=== PATIENT | male | born 1950 | race Caucasian/White ===

== ENCOUNTER 2017-02-04 11:45 | Emergency (ER) | payer MEDICARE, OTHER ==
[2017-02-04] MEDS ORDERED: GLUCAGON,HUMAN RECOMB 1 MG INJ IM ONE (12:03)
--- NOTE | 2017-02-04 12:07 | ER Document Report ---
ED Medical Screen (RME) - General Chief Complaint: Swallowed Foreign Body Stated Complaint: THROAT IRRITATION Time Seen by Provider: 02/04/17 12:02 Mode of Arrival: Ambulatory Information source: Patient TRAVEL OUTSIDE OF THE [place] IN LAST 30 DAYS: No - HPI Patient complains to provider of: food impaction Onset: Yesterday - pt. roseann eating dinner last night and feels he got some food ( eating hamburger and bun) stuck in his esophagus. This happened last year and "got better after he got a shot." Is able to handle his secretions - Related Data Allergies/Adverse Reactions: No Known Allergies Allergy (Verified 02/04/17 11:48) Past Medical History - Social History Chew tobacco use (# tins/day): No Frequency of alcohol use: None Drug Abuse: None - Past Medical History Cardiac Medical History: Reports: Hx Heart Attack, Hx Hypertension Renal/ Medical History: Denies: Hx Peritoneal Dialysis Past Surgical History: Reports: Hx Cardiac Catheterization, Hx Cardiac Surgery - pace maker, Hx Coronary Stent - x2, Hx Pacemaker - Immunizations Hx Diphtheria, Pertussis, Tetanus Vaccination: No Physical Exam - Vital signs Vitals: Temp Pulse Resp BP Pulse Ox 98.3 F 64 16 136/78 H 97 02/04/17 11:53 02/04/17 11:53 02/04/17 11:53 02/04/17 11:53 02/04/17 11:53 Course - Vital Signs Vital signs: Temp Pulse Resp BP Pulse Ox 98.3 F 64 16 136/78 H 97 02/04/17 11:53 02/04/17 11:53 02/04/17 11:53 02/04/17 11:53 02/04/17 11:53
--- NOTE | 2017-02-04 15:24 | RADIOLOGY REPORT (SQ) ---
EXAM DESCRIPTION: BARIUM SWALLOW ESOPHAGUS COMPLETED DATE/TIME: 02/04/2017 3:02 pm REASON FOR STUDY: gastrografin contrast study for dysphagia COMPARISON: None. TECHNIQUE: Under fluoroscopic guidance, patient ingested water soluble contrast. Fluoroscopic spot i mages and routine radiographic images acquired and stored on PACS. 12 MM BARIUM TABLET GIVEN: No. LIMITATIONS: None. FLUOROSCOPY TIME: 26 seconds 4 images saved to PACS. FINDINGS: NEUROMUSCULAR COORDINATION OF SWALLOW: Normal. No aspiration. ESOPHAGEAL MOTILITY: Tertiary contractions. ESOPHAGEAL MUCOSA: Normal mucosa without masses or ulceration. GASTRO-ESOPHAGEAL JUNCTION: Impacted food bolus. NON-GI TRACT STRUCTURES: Pacemaker leads in place. OTHER: No other significant finding. IMPRESSION: Impacted food bolus distal esophagus. Recommend direct visualization. COMMENT: Quality ID [id number]: Final reports for procedures using fluoroscopy that document radiation exp osure indices, or exposure time and number of fluorographic images (if radiation exposure indices are not available) TECHNICAL DOCUMENTATION: JOB ID: [id number] 2010 [employer]- All Rights Reserved
--- NOTE | 2017-02-04 16:27 | RADIOLOGY REPORT (SQ) ---
EXAM DESCRIPTION: ACUTE ABDOMEN SERIES COMPLETED DATE/TIME: 02/04/2017 4:05 pm REASON FOR STUDY: esopageal FB with obstruction, ?still present? COMPARISON: None. NUMBER OF VIEWS: Three views. TECHNIQUE: Frontal chest, supine abdomen and upright/decubitus abdomen radiographic images acquired. LIMITATIONS: None. FINDINGS: CHEST: Lungs clear of infiltrates. FREE AIR: None. No abnormal gas collections. BOWEL GAS PATTERN: Nonobstructive pattern. No dilated loops or air fluid levels. CALCIFICATIONS: No suspicious calcifications. HARDWARE: None in the abdomen. SOFT TISSUES: No gross mass or suggestion of organomegaly. BONES: No acute fracture. No worrisome bone lesions. OTHER: Enteric contrast is seen throughout the small bowel. IMPRESSION: Previously ingested enteric contrast has propagated to the level of the distal small bow el. Please note that the previously reported impacted esophageal fluid bolus may still be present to some degree. TECHNICAL DOCUMENTATION: JOB ID: [id number] [employer]- All Rights Reserved
[2017-02-04 16:58] VITALS: BP 126/71
--- NOTE | 2017-02-04 17:18 | ER Document Report ---
ED GI/ - General Chief Complaint: Swallowed Foreign Body Stated Complaint: THROAT IRRITATION Time Seen by Provider: 02/04/17 12:02 Mode of Arrival: Ambulatory Notes: Patient says that he was eating a hamburger bone with some peanut butter on it about 10 PM last night and it felt as if it caught in the anterior neck region. Patient thinks he swallowed too fast. He tries to drink liquids but was unable to do so. He tried hot coffee without success. Still feels as if something is caught in the back of his throat. He cannot drink anything because if he does catches and comes right back up. Patient denies any abdominal pains. Last bowel movement was yesterday. Patient had a similar episode in September 2015 and was seen here and given an injection of glucagon and his symptoms subsided and he was fine after that. He did not have any GI follow-up. Denies any shortness of breath or difficulty breathing. No fevers. Patient has a history of CHF with a pacemaker defibrillator. Cigarette smoker. TRAVEL OUTSIDE OF THE [place] IN LAST 30 DAYS: No - Related Data Allergies/Adverse Reactions: No Known Allergies Allergy (Verified 02/04/17 11:48) Past Medical History - General Information source: Patient - Social History Smoking Status: Current Every Day Smoker Chew tobacco use (# tins/day): No Frequency of alcohol use: None Drug Abuse: None Family History: Reviewed & Not Pertinent Patient has suicidal ideation: No Patient has homicidal ideation: No - Past Medical History Cardiac Medical History: Reports: Hx Congestive Heart Failure, Hx Heart Attack, Hx Hypertension Endocrine Medical History: Denies: Hx Diabetes Mellitus Type 1, Hx Diabetes Mellitus Type 2 Past Surgical History: Reports: Hx Cardiac Catheterization, Hx Cardiac Surgery - pace maker, Hx Coronary Stent - x2, Hx Pacemaker - Immunizations Hx Diphtheria, Pertussis, Tetanus Vaccination: No Review of Systems - Review of Systems Notes: REVIEW OF SYSTEMS: CONSTITUTIONAL : Denies fever. EENT: Denies eye, ear, nose or mouth or throat pain or other symptoms. CARDIOVASCULAR: Denies chest pain. RESPIRATORY: Denies cough, chest congestion, or shortness of breath. GASTROINTESTINAL: See HPI. GENITOURINARY: Denies difficulty or painful urinating, urinary frequency, blood in urine. MUSCULOSKELETAL: Denies back or neck pain. Denies joint pain or swelling. SKIN: Denies rash or skin lesions. NEUROLOGICAL: Denies LOC or altered mental status. Denies headache. Denies sensory loss or motor deficits. ALL OTHER SYSTEMS REVIEWED AND NEGATIVE. Physical Exam - Vital signs Vitals: Temp Pulse Resp BP Pulse Ox 98.3 F 64 16 136/78 H 97 02/04/17 11:53 02/04/17 11:53 02/04/17 11:53 02/04/17 11:53 02/04/17 11:53 Interpretation: Normal - Notes Notes: PHYSICAL EXAMINATION: GENERAL: Well-appearing, in no acute distress. Patient attempted to drink some water, at my request, and is unable to get it to stay down. He began regurgitating the water almost immediately after drinking it. Patient received 1 mg of glucagon IM just before I started examining him. HEAD: Atraumatic, normocephalic. EYES: Pupils equal round and reactive to light, extraocular movements intact. ENT: oropharynx clear without exudates. Moist mucous membranes. NECK: Normal range of motion, supple. LUNGS: Breath sounds clear and equal bilaterally. HEART: Regular rate and rhythm without murmurs. ABDOMEN: Soft, nontender. No guarding or rebound. BACK: No tenderness throughout entire back. EXTREMITIES: Normal range of motion without pain. NEUROLOGICAL: Normal speech, normal gait. Normal sensory, motor, and reflex exams. Awake, alert, and oriented x3. Cranial nerves normal. SKIN: Warm, dry, no rashes. Course - Re-evaluation Re-evalutation: 02/04/17 19:07 We waited until the patient had the glucagon on board for over an hour and had him drink some more carbonated beverage, with no success. He regurgitated some of that as well. Radiology was called and came to the department and gave the patient Gastrografin to swallow. This seizure revealed the patient to have a complete obstruction of the distal esophagus with the esophagus distended with contrast media and none seen in the abdomen. Sometime after that, went back to check on the patient he said he was feeling much better. He says he had spit up a lot of the contrast and also found some chicken and rice in the vomitus. Denies any abdominal pains. I re-x-rayed the patient and found that the column of contrast media in his esophagus was gone. Additionally, you could see contrast throughout his bowels on his abdominal film. He has no tenderness at all there. Up and ambulatory and walked outside to have a cigarette. I told the patient that I think he was safe to go home, but not eating anything but blended food for a few days and then small quantities of small food more frequently than usual but with less quantity. I explained to him that he could have something as benign as esophageal stricture that needs to be dilated periodically versus a tumor or even cancer of the esophagus and thus it is very important for him to have this further worked up and have an endoscopy done. He is going to contact Dr. Lao the first of the week to get set up for this follow-up. Patient was advised to return if he has recurrence of his symptoms, abdominal pain, fever, etc. - Vital Signs Vital signs: Temp Pulse Resp BP Pulse Ox 97.7 F 69 17 126/71 H 98 02/04/17 16:50 02/04/17 16:50 02/04/17 16:50 02/04/17 16:50 02/04/17 16:50 - Diagnostic Test Radiology results interpreted by me: 02/04/17 19:10 Patient's barium swallow with Gastrografin showed complete obstruction of the esophagus terminating in the lower esophagus at the diaphragm. Then, subsequent KUB film shows contrast media throughout the small bowel, and none in the esophagus. Discharge - Discharge Clinical Impression: Food impaction of esophagus Condition: Stable Disposition: HOME, SELF-CARE Additional Instructions: Esophageal Foreign Object Removal You have had a foreign object removed from the esophagus. For most patients , swallowing is normal after the procedure. But sometimes there's swelling, a scratch, or swollen muscle at the spot where the foreign object was lodged. Take only liquids at first. If you feel a "lump in the throat," a sense of "sticking," or other discomfort while swallowing, stay on liquids until the symptoms are gone. As you begin to eat solid food, start with soft items such as puddings or applesauce. Then move on to regular food, making sure you chew each bite very thoroughly before swallowing. Return at once if there is repeated vomiting, vomiting of blood, fever, chest pain, shortness of breath, inability to swallow, or abdominal pain. See the doctor if you aren't eating normally within two days. It is very important that you follow-up with your private doctor to get arrangements made for you to have a gastrointestinal specialist do an endoscopy and look down your esophagus to determine why you develop this food bolus impaction this evening. Most likely it is related to scar tissue forming in the distal esophagus from acid reflux, but you cannot rule out tumors and other more serious causes of the temporary blockage that you had Return for reevaluation if you develop abdominal pain, recurrent food retention , fever, etc. FOLLOW-UP CARE: If you have been referred to a physician for follow-up care, call the physician s office for an appointment as you were instructed or within the next two days. If you experience worsening or a significant change in your symptoms, notify the physician immediately or return to the Emergency Department at any time for re-evaluation. Referrals: MAVIS LAO MD [Primary Care Provider] - Follow up in 3-5 days
== END 2017-02-04 17:09 | disposition home or self-care (01) ==
LOC: ER 11:45
DX: T18.128A Food in esophagus causing other injury, initial encounter (principal); X58.XXXA Exposure to other specified factors, initial encounter; I50.9 Heart failure, unspecified; I11.0 Hypertensive heart disease with heart failure; F17.200 Nicotine dependence, unspecified, uncomplicated; I25.2 Old myocardial infarction; Z95.0 Presence of cardiac pacemaker
CPT/HCPCS: 99283; 96372; 74022; 74220; J1610